=== PATIENT | male | born 1955 | race Caucasian/White ===

== ENCOUNTER 2018-09-21 06:23 | Day surgery (SDC) | payer OTHER ==
[2018-09-20 14:33] VITALS: BP 141/73
[2018-09-20 14:33] LABS: BASOPHILS % (AUTO) 0.7 % (0.0-5.0); EOSINOPHILS % (AUTO) 1.8 % (0.0-8.0); HEMATOCRIT 39.7 % (42-54); LYMPHOCYTES % (AUTO) 15.3 % (21.0-51.0); MEAN CORPUSCULAR VOLUME 93.7 fL (79-99); MONOCYTES % (AUTO) 6.6 % (3.0-13.0); NEUTROPHILS % (AUTO) 75.6 % (40.0-77.0); PLATELET COUNT (AUTO) 131 K/uL (130-400); RED BLOOD CELL COUNT(AUTO) 4.23 MIL/uL (4.50-6.20); RED CELL DISTRIBUTION WIDTH 14.6 % (11.0-15.5); WHITE BLOOD COUNT (AUTO) 7.3 K/uL (4.8-10.8)
[2018-09-20 14:42] LABS: CREATININE 1.4 mg/dL (0.5-1.5); POTASSIUM 4.7 mmol/L (3.5-5.1)
[2018-09-20 14:45] LABS: INR 1.21 (0.85-1.15); PARTIAL THROMBOPLASTIN TIME 29.3 SEC (26.3-35.5); PROTHROMBIN TIME 12.7 SEC (9.6-11.6)
--- NOTE | 2018-09-20 15:44 | NUR ---
Cardiac Clearance, labs PT, INR drawn 09/20/18, and cardiac clearance is moderate risk reviewed by lucas Moreira to proceed with surgery, no new orders
--- NOTE | 2018-09-20 16:17 | NUR ---
PT, INR reported PT, INR drawn 09/20/[address] Carreno, no new orders
[2018-09-21] VITALS (12 sets, daily range): BP systolic 118–156; BP diastolic 69–89
[~2018-09-21] VITALS: Ht 193 cm; Wt 87.9 kg
[~2018-09-21 06:23] MED LIST: FURO40TA5 PO; GLIP5TAB11 PO; METF500T7 PO; METO-409 PO; SACU1TAB7 PO; SIMV5TAB6 PO; WARF-57 PO
--- NOTE | 2018-09-21 06:49 | NUR ---
POTENTIAL FOR INFECTION: DRESSING TO RIGHT ELBOW DRY AND INTACT. NO SWELLING OR REDNESS NOTED TO SURROUNDING AREA.
[2018-09-21] MEDS ORDERED: SODIUM CHLORIDE 0.9% 1000ML 1,000 ML IV ONE (06:58)
[2018-09-21] MEDS: CEFAZOLIN SODIUM 1 GM VIAL ONE ×2 (07:08→08:30)
--- NOTE | 2018-09-21 07:09 | NUR ---
VALUABLES: CLOTHING, ONW YELLOW COLOR COATED RING, ONE WHITE COLOR COATED WATCH, CELL PHONE AND WALLET GIVEN TO - LILI PRADO.
[2018-09-21] MEDS ORDERED: LIDOCAINE PF 2% 5ML ABBOJECT ONE ×2 (08:20→08:22)
[2018-09-21] MEDS ORDERED: SUCCINYLCHOLINE 200MG/10ML SYR ONE (08:20)
[2018-09-21] MEDS ORDERED: NEOSTIGMINE 5MG/5ML SYR IV ONE (08:21)
[2018-09-21] MEDS ORDERED: GLYCOPYRROLATE 1 MG/5 ML SYRINGE ONE (08:21)
[2018-09-21] MEDS ORDERED: PROPOFOL 10 MG/ML 20ML VIAL IV ONE (08:21)
[2018-09-21] MEDS ORDERED: FENTANYL CITRATE PF 50 MCG/1 ML 2ML VIAL ONE (08:21)
[2018-09-21] MEDS ORDERED: ROCURONIUM 10MG/1ML SYR 10 MG/ML ML ONE (08:21)
[2018-09-21] MEDS ORDERED: MIDAZOLAM HCL 1 MG/ML 2ML VIAL ONE (08:21)
[2018-09-21] MEDS ORDERED: CEFAZOLIN SODIUM 1 GM VIAL ONE (08:31)
[2018-09-21] MEDS ORDERED: MEPERIDINE-PF 50 MG/ML SYG ONE (08:31)
[2018-09-21] MEDS ORDERED: DEXTROSE 50%-WATER 50 ML DISP.SYRIN IV ONE (09:05)
[2018-09-21] MEDS ORDERED: PHENYLEPHRINE HCL 10 MG/ML 1ML VIAL IV ONE (09:06)
[2018-09-21] MEDS ORDERED: TYL3 PO (10:00)
[2018-09-21] MEDS ORDERED: CEPH500B PO (10:00)
[2018-09-21] MEDS ORDERED: MEPERIDINE-PF 25 MG/ML SYG ONE ×2 (10:05→10:11)
[2018-09-21] MEDS ORDERED: PROMETHAZINE HCL 25 MG/ML 1ML AMPULE IM ONE (10:11)
--- NOTE | 2018-09-21 11:50 | NUR ---
PT ALERT ,ORIENTED,COMFORTABLE ,SLING IN PLACE WITH DRESSING INTACT ,DISCHARGED HOME WITH
== END 2018-09-21 11:50 | disposition home or self-care (01) ==
LOC: DAH 06:23
PROVIDERS: ATTEND Orthopaedic Surgery
DX: M70.21 Olecranon bursitis, right elbow (principal); T81.89XA Other complications of procedures, not elsewhere classified, initial encounter; Z79.899 Other long term (current) drug therapy; Z79.84 Long term (current) use of oral hypoglycemic drugs; Z79.01 Long term (current) use of anticoagulants; I45.9 Conduction disorder, unspecified; I10 Essential (primary) hypertension; I25.10 Atherosclerotic heart disease of native coronary artery without angina pectoris; I42.0 Dilated cardiomyopathy; Z95.0 Presence of cardiac pacemaker; Z85.828 Personal history of other malignant neoplasm of skin
CPT/HCPCS: 24105; 36415; 80048; 82948 ×2; 85025; 85610; 85730; 88304; A4218; A4565; A4649; A4930; A6223; J0330; J0690 ×2; J2001 ×2; J2175 ×3; J2250; J2370; J2550; J2704; J2710; J3010; J3490; J7030 ×2; J7070; Q4051

== ENCOUNTER 2022-03-10 09:50 | Inpatient (IN) | payer OTHER ==
[~2022-03-10] VITALS: Ht 193 cm; Wt 72.7 kg
[~2022-03-10 09:50] MED LIST changes: +METF-526 PO; -METF500T7 PO; +SIMV5TAB58 PO; -SIMV5TAB6 PO; +WARF2.5T85 PO
[2022-03-10 10:35] LABS: BASOPHILS % (AUTO) 0.5 % (0.0-5.0); EOSINOPHILS % (AUTO) 8.1 % (0.0-8.0); HEMATOCRIT 28.2 % (42-54); LYMPHOCYTES % (AUTO) 14.6 % (21.0-51.0); MEAN CORPUSCULAR HEMOGLOBIN 28.2 pg (27.0-33.0); MEAN CORPUSCULAR VOLUME 85.5 fL (79-99); MONOCYTES % (AUTO) 9.7 % (3.0-13.0); NEUTROPHILS % (AUTO) 66.7 % (40.0-77.0); PLATELET COUNT (AUTO) 214 K/uL (130-400); RED CELL DISTRIBUTION WIDTH 15.9 % (11.0-15.5); WHITE BLOOD COUNT (AUTO) 9.2 K/uL (4.8-10.8)
[2022-03-10 10:44] LABS: POTASSIUM 5.4 mmol/L (3.5-5.1)
[2022-03-10 10:49] LABS: ALBUMIN 2.3 g/dL (3.5-5.0)
[2022-03-10 11:39] LABS: B-TYPE NATRIURETIC PEPTIDE 140 pg/mL (0-100)
[2022-03-10] MEDS ORDERED: 0.9%NACL 1000ML 1,000 ML IV SCH (12:00)
[2022-03-10] MEDS ORDERED: ONDANSETRON 4MG INJ IVP PRN (12:00)
[2022-03-10] MEDS: 0.9%NACL 1000ML 1,000 ML IV SCH ×2 (12:45→22:00)
[2022-03-10 14:03] LABS: INR > 7.00 (0.85-1.15); PARTIAL THROMBOPLASTIN TIME > 139.0 SEC (26.3-35.5)
[2022-03-10 14:04] LABS: PROTHROMBIN TIME > 90.0 SEC (9.6-11.6)
[2022-03-10] MEDS ORDERED: DEXAMETHASONE SOD PHOSPHATE 4 MG/ML 1ML VIAL IV ONE (14:30)
[2022-03-10] MEDS ORDERED: DiphenhydrAMINE HCL 50 MG/ML VIAL IV ONE (14:30)
[2022-03-10 15:48] VITALS: BP 109/50
[2022-03-10] MEDS ORDERED: DEXAMETHASONE SOD PHOSPHATE 4 MG/ML 1ML VIAL IV SCH (17:46)
[2022-03-10] MEDS ORDERED: DiphenhydrAMINE HCL 50 MG/ML VIAL IV SCH (17:46)
[2022-03-10] MEDS ORDERED: KAYEXALATE 15GM/60ML PO ONE (18:05)
[2022-03-10 19:51] VITALS: BP 95/61
[2022-03-10 22:35] VITALS: BP 84/47
[2022-03-11] MEDS ORDERED: ZOSYN 3.375GM +NS 50ML IV SCH (00:30)
[2022-03-11] MEDS ORDERED: ACETAMINOPHEN 650 MG SUPPOSITORY RC PRN (00:30)
[2022-03-11] MEDS ORDERED: ONDANSETRON 4MG INJ IVP PRN (00:30)
[2022-03-11] MEDS ORDERED: LACTULOSE 20 GM/30 ML UDCUP PO PRN (00:30)
[2022-03-11] MEDS ORDERED: GLUCAGON 1MG KIT 1 MG ML IM PRN (00:30)
[2022-03-11] MEDS ORDERED: DEXTROSE 50%-WATER 50 ML DISP.SYRIN IV PRN ×2 (00:30→08:30)
[2022-03-11] MEDS ORDERED: ACETAMINOPHEN 325 MG TAB PO PRN (00:30)
[2022-03-11] MEDS ORDERED: PHYTONADIONE 10 MG in 0.9%NACL 50ML 50 ML IVPB ONE (01:00)
[2022-03-11 02:48] VITALS: BP 101/54
[2022-03-11 05:09] LABS: HEMATOCRIT 27.6 % (42-54); MEAN CORPUSCULAR HEMOGLOBIN 27.8 pg (27.0-33.0); MEAN CORPUSCULAR HGB CONC 31.9 g/dL (32.0-36.0); MEAN CORPUSCULAR VOLUME 87.1 fL (79-99); RED BLOOD CELL COUNT(AUTO) 3.17 MIL/uL (4.50-6.20); RED CELL DISTRIBUTION WIDTH 15.9 % (11.0-15.5); WHITE BLOOD COUNT (AUTO) 5.3 K/uL (4.8-10.8)
[2022-03-11 05:20] LABS: ALBUMIN 2.2 g/dL (3.5-5.0); CREATININE 1.5 mg/dL (0.5-1.5); MAGNESIUM 2.2 mg/dL (1.80-2.40); PHOSPHORUS 2.9 mg/dL (2.5-4.9); POTASSIUM 5.4 mmol/L (3.5-5.1); TOTAL PROTEIN, SERUM 6.5 g/dL (6.0-8.3)
[2022-03-11 05:32] LABS: HEMOGLOBIN A1C 6.5 % (4.0-6.0)
[2022-03-11 08:00] VITALS: BP 103/69
[2022-03-11] MEDS ORDERED: LIDOCAINE HCL-MPF 1% 2ML VIAL IV PRN (08:30)
[2022-03-11] MEDS ORDERED: POTASSIUM CHLORIDE 20MEQ/100ML 100 ML IV PRN ×2 (08:30)
[2022-03-11] MEDS ORDERED: MAGNESIUM 2GM PREMIX 50ML 50 ML IV PRN (08:30)
[2022-03-11] MEDS ORDERED: LIDOCAINE HCL MPF 1% 5ML VIAL IV PRN (08:30)
[2022-03-11] MEDS ORDERED: KCL 20 MEQ ERTAB PO PRN (08:30)
[2022-03-11] MEDS ORDERED: POTASSIUM CHLORIDE 10% ELIXIR 20 MEQ/15 ML UDCUP PO PRN (08:30)
[2022-03-11] MEDS: 0.9%NACL 1000ML 1,000 ML IV SCH ×2 (08:52→19:16)
[2022-03-11] MEDS: PANTOPRAZOLE 40 MG/VIAL IVP SCH (08:53)
[2022-03-11 11:29] VITALS: BP 104/59
[2022-03-11] MEDS: ZOSYN 3.375GM +NS 50ML IV SCH ×2 (15:40→19:15)
[2022-03-11 16:00] VITALS: BP 99/61
[2022-03-11] MEDS: MORPHINE 2 MG SYG IVP PRN (19:16)
[2022-03-11] MEDS ORDERED: WARF2.5T85 PO (19:32)
[2022-03-11 20:00] VITALS: BP 112/69
[2022-03-11] MEDS ORDERED: ENOXAPARIN SODIUM 40 MG/0.4 ML SYRINGE SQ ONE ×2 (20:48→21:00)
[2022-03-11 21:20] LABS: INR 1.81 (0.85-1.15); PROTHROMBIN TIME 19.1 SEC (9.6-11.6)
[2022-03-11 21:21] LABS: PARTIAL THROMBOPLASTIN TIME 46.4 SEC (26.3-35.5)
[2022-03-12] VITALS: BP 96/52
[2022-03-12] MEDS: ZOSYN 3.375GM +NS 50ML IV SCH ×2 (03:49→12:13)
[2022-03-12] MEDS: MORPHINE 2 MG SYG IVP PRN ×2 (03:55→10:38)
[2022-03-12 04:44] VITALS: BP 106/57
[2022-03-12 06:01] LABS: HEMATOCRIT 26.2 % (42-54); MEAN CORPUSCULAR HEMOGLOBIN 28.7 pg (27.0-33.0); MEAN CORPUSCULAR VOLUME 84.5 fL (79-99); RED BLOOD CELL COUNT(AUTO) 3.1 MIL/uL (4.50-6.20); WHITE BLOOD COUNT (AUTO) 8.8 K/uL (4.8-10.8)
[2022-03-12 06:15] LABS: INR 1.23 (0.85-1.15); PROTHROMBIN TIME 13.3 SEC (9.6-11.6)
[2022-03-12 06:17] LABS: PARTIAL THROMBOPLASTIN TIME 41.6 SEC (26.3-35.5)
[2022-03-12 06:19] LABS: CREATININE 1.4 mg/dL (0.5-1.5); MAGNESIUM 2.2 mg/dL (1.80-2.40); POTASSIUM 5.5 mmol/L (3.5-5.1)
[2022-03-12] MEDS ORDERED: ROSU20TA31 PO (06:45)
[2022-03-12 08:00] VITALS: BP 107/55
[2022-03-12] MEDS: PANTOPRAZOLE 40 MG/VIAL IVP SCH (08:59)
[2022-03-12] MEDS ORDERED: NICOTINE 14 MG/ 24 HR PATCH TD SCH (09:00)
[2022-03-12] MEDS ORDERED: ENOXAPARIN SODIUM 40 MG/0.4 ML SYRINGE SQ SCH (09:00)
[2022-03-12 12:00] VITALS: BP 114/77
[2022-03-12] MEDS: 0.9%NACL 1000ML 1,000 ML IV SCH (12:14)
[2022-03-12 16:00] VITALS: BP 107/65
[2022-04-08] MEDS ORDERED: CIPR500T10 PO (10:03)
[2022-04-08] MEDS ORDERED: PANT40TA54 PO (10:03)
[2022-04-08] MEDS ORDERED: DIGO125T71 PO (10:06)
[2022-04-08] MEDS ORDERED: ONDA4TAB10 PO (10:07)
[2022-04-08] MEDS ORDERED: WARF-57 PO (10:08)
[2022-04-08] MEDS ORDERED: ACET-2079 PO (10:09)
[2022-04-15] MEDS ORDERED: ACET-2079 PO (13:18)
== END 2022-03-12 17:00 | disposition home or self-care (01) | DRG 682 ==
LOC: EDH 09:50 → EDHIP 11:39 → OBSVTOIN 11:39 → 3CH 15:04
PROVIDERS: ADMIT Internal Medicine Hematology & Oncology; ATTEND Internal Medicine Hematology & Oncology
PROC: 30233N1 Transfusion of Nonautologous Red Blood Cells into Peripheral Vein, Percutaneous Approach (ICD-10-PCS; 2022-03-10)
PROC: 30233R1 Transfusion of Nonautologous Platelets into Peripheral Vein, Percutaneous Approach (ICD-10-PCS; 2022-03-10)
PROC: 30233K1 Transfusion of Nonautologous Frozen Plasma into Peripheral Vein, Percutaneous Approach (ICD-10-PCS; principal; 2022-03-11)
DX: N17.9 Acute kidney failure, unspecified (principal); R57.1 Hypovolemic shock; I42.9 Cardiomyopathy, unspecified; K80.00 Calculus of gallbladder with acute cholecystitis without obstruction; R64 Cachexia; Z68.1 Body mass index [BMI] 19.9 or less, adult; I95.9 Hypotension, unspecified; Z20.822 Contact with and (suspected) exposure to COVID-19; I11.0 Hypertensive heart disease with heart failure; F17.210 Nicotine dependence, cigarettes, uncomplicated; I50.9 Heart failure, unspecified; E11.9 Type 2 diabetes mellitus without complications; D64.9 Anemia, unspecified; I48.91 Unspecified atrial fibrillation; Z79.01 Long term (current) use of anticoagulants; E78.5 Hyperlipidemia, unspecified; J44.9 Chronic obstructive pulmonary disease, unspecified; E86.1 Hypovolemia; E86.0 Dehydration; R59.0 Localized enlarged lymph nodes; Z95.810 Presence of automatic (implantable) cardiac defibrillator; R06.02 Shortness of breath
CPT/HCPCS: 36415; 36430; 71045; 74176; 78227; 80048; 80053; 82533; 82948; 83036; 83605; 83735; 83880; 84100; 84484; 85025; 85027; 85610; 85730; 86850; 86900; 86901; 86923; 86927; 87040; 87635; 87804; 93005; 93970; A9537; C9113; C9803; G0378; J1100; J1200; J1650; J2543; J3430; J7030; P9016; P9017; P9034

== ENCOUNTER → 2022-04-08 | Day surgery (SDC) | payer OTHER ==
[~2022-04-08] MED LIST changes: +ACET-2079 PO; +CIPR500T10 PO; +DIGO125T71 PO; -GLIP5TAB11 PO; +ONDA4TAB10 PO; +PANT40TA54 PO; +ROSU20TA31 PO; -SIMV5TAB58 PO
[2022-04-08 08:24] LABS: BASOPHILS % (AUTO) 0.5 % (0.0-5.0); EOSINOPHILS % (AUTO) 9.3 % (0.0-8.0); HEMATOCRIT 34.3 % (42-54); LYMPHOCYTES % (AUTO) 8.7 % (21.0-51.0); MEAN CORPUSCULAR HEMOGLOBIN 28.4 pg (27.0-33.0); MEAN CORPUSCULAR HGB CONC 32.7 g/dL (32.0-36.0); MEAN CORPUSCULAR VOLUME 87.1 fL (79-99); MONOCYTES % (AUTO) 7.6 % (3.0-13.0); NEUTROPHILS % (AUTO) 73.3 % (40.0-77.0); PLATELET COUNT (AUTO) 254 K/uL (130-400); RED BLOOD CELL COUNT(AUTO) 3.94 MIL/uL (4.50-6.20); RED CELL DISTRIBUTION WIDTH 16.7 % (11.0-15.5); WHITE BLOOD COUNT (AUTO) 15.5 K/uL (4.8-10.8)
[2022-04-08 08:37] LABS: PARTIAL THROMBOPLASTIN TIME 63.2 SEC (26.3-35.5)
[2022-04-08 08:40] LABS: ALBUMIN 2.4 g/dL (3.5-5.0); CREATININE 3.2 mg/dL (0.5-1.5); POTASSIUM 5.3 mmol/L (3.5-5.1); TOTAL PROTEIN, SERUM 7.9 g/dL (6.0-8.3)
[2022-04-08 09:29] LABS: PROTHROMBIN TIME 80.7 SEC (9.6-11.6)
[2022-04-08 09:30] LABS: INR > 7.00 (0.85-1.15)
== END | disposition home or self-care (01) ==
LOC: DAH 07:42 → EDSTATUS 08:00
PROVIDERS: ATTEND Internal Medicine Hematology & Oncology
DX: R59.1 Generalized enlarged lymph nodes (principal); D64.9 Anemia, unspecified; N28.89 Other specified disorders of kidney and ureter; Z53.8 Procedure and treatment not carried out for other reasons; Z79.01 Long term (current) use of anticoagulants
CPT/HCPCS: 36415; 80053; 85025; 85610; 85730